=== PATIENT | female | born 1980 | race Caucasian/White ===

== ENCOUNTER 2023-05-28 07:23 | Outpatient (CLI) | payer BC ==
[2023-05-28 08:27] VITALS: TEMP 98
[2023-05-28 08:28] VITALS: BMI 24.9
[2023-05-28] MEDS ORDERED: Iopamidol-M 300 61% 15 ML VIAL ONE (12:18)
== END 2023-05-28 10:33 | disposition home or self-care (01) ==
LOC: CSHRAD 07:23
PROVIDERS: ATTEND Specialist
DX: M47.22 Other spondylosis with radiculopathy, cervical region (principal); M47.26 Other spondylosis with radiculopathy, lumbar region; Z98.890 Other specified postprocedural states; R91.1 Solitary pulmonary nodule; Q76.49 Other congenital malformations of spine, not associated with scoliosis; K80.20 Calculus of gallbladder without cholecystitis without obstruction; M46.1 Sacroiliitis, not elsewhere classified; N94.89 Other specified conditions associated with female genital organs and menstrual cycle
CPT/HCPCS: 62305; 72129; 72132; Q9967